=== PATIENT | male | born 1965 | race Caucasian/White ===

== ENCOUNTER 2017-03-18 18:09 | Emergency (ER) | payer BC ==
--- NOTE | 2017-03-18 18:48 | UC ---
Bite Injury/Animal HPI - HPI Summary HPI Summary: 51 YEAR OLD MALE PRESENTS WITH LEFT CALF INSECT BITE. - History of Current Complaint Stated Complaint: SPIDER BITE Time Seen by Provider: 03/18/17 18:47 Hx Obtained From: Patient Severity Currently: Moderate Severity Initially: Moderate Pain Scale Used: 0-10 Numeric - 5 Onset/Duration: Sudden Onset - Allergies/Home Medications Allergies/Adverse Reactions: Allergies Allergy/AdvReac Type Severity Reaction Status Date / Time hayfever Allergy Eyes Uncoded 03/18/17 18:53 Itchy/Swollen/Red/Watery Home Medications: Home Medications Atorvastatin* [Lipitor 10 MG*] 10 mg PO QPM 03/18/17 [History Confirmed 03/18/17 ] Ibuprofen TAB* [Advil TAB*] 400 mg PO Q6H PRN 03/18/17 [History Confirmed ] PMH/Surg Hx/FS Hx/Imm Hx Previously Healthy: Yes - Surgical History Surgical History: Yes Surgery Procedure, Year, and Place: Age 21 yrs oral surgery - Family History Known Family History: Positive: Cardiac Disease - Social History Alcohol Use: Occasionally Substance Use Type: None, Marijuana Substance Use Comment - Amount & Last Used: occasional Smoking Status (MU): Current Some Day Smoker Type: Pipe Review of Systems Constitutional: Negative Skin: Other - LEFT CALF INSECT BITE Eyes: Negative ENT: Negative Respiratory: Negative Cardiovascular: Negative Gastrointestinal: Negative Genitourinary: Negative Motor: Negative Neurovascular: Negative Musculoskeletal: Negative Neurological: Negative Psychological: Negative All Other Systems Reviewed And Are Negative: Yes Physical Exam Triage Information Reviewed: Yes Vital Signs Reviewed: Yes Eye Exam: Normal ENT Exam: Normal Dental Exam: Normal Neck exam: Normal Neck: Positive: 1 Respiratory Exam: Normal Cardiovascular Exam: Normal Abdominal Exam: Normal Musculoskeletal Exam: Normal Neurological Exam: Normal Psychological Exam: Normal Skin: Positive: Other - LEFT CALF INSECT BITE Bite Injury Course/Dx - Differential Dx/Diagnosis Provider Diagnoses: LEFT CALF INSECT BITE Discharge - Discharge Plan Condition: Stable Disposition: HOME Prescriptions: DOXYcycline CAP(*) [DOXYcycline 100MG CAP(*)] 100 mg PO BID #14 cap Patient Education Materials: Lyme Disease (ED), Insect Bite or Sting (ED), Tick Bite (ED) Referrals: Leeanna Hamilton NP [Primary Care Provider] -
[2017-03-18 18:53] VITALS: BP 139/61
== END 2017-03-18 19:13 | disposition home or self-care (01) ==
LOC: UCCORT 18:09
DX: S80.862A Insect bite (nonvenomous), left lower leg, initial encounter (principal); J30.1 Allergic rhinitis due to pollen; W57.XXXA Bitten or stung by nonvenomous insect and other nonvenomous arthropods, initial encounter
CPT/HCPCS: 86618; 99212; G0463

== ENCOUNTER 2017-09-21 19:06 | Emergency (ER) | payer BC ==
[2017-09-21 19:21] VITALS: BP 137/85
[2017-09-21] MEDS ORDERED: Cephalexin CAP* 500 MG PO ONE ×2 (19:31)
[2017-09-21] MEDS ORDERED: Tetan/Diph/Pertus SYR(Tdap)* 0.5 ML SYR(BOOSTRIX) use SYR IM ONE (19:31)
--- NOTE | 2017-09-21 19:41 | UC ---
Hand/Wrist HPI - HPI Summary HPI Summary: 52 MALE SUSTAINED A PW AT WORK ON 09/18 HE STATES THAT THE PAIN WAS MINIMAL AND HE HAS BEEN ASYMPTOMATIC UNTIL TODAY TODAY HIS THUMB BECAME RED AND SWOLLEN PAIN 4/10 DECREASED ROM TODAY UNSURE OF LAST Td - History Of Current Complaint Chief Complaint: UCSkin Stated Complaint: L THUMB INJ Time Seen by Provider: 09/21/17 19:25 Hx Obtained From: Patient Onset/Duration: Sudden Onset, Lasting Days Severity Initially: Mild Severity Currently: Mild Pain Intensity: 4 Pain Scale Used: 0-10 Numeric Character Of Pain: Dull, Aching Aggravating Factor(s): Movement Associated Signs And Symptoms: Positive: Swelling - TODAY, Redness - TODAY Related History: Occupational Injury, Dominant Hand Right - Allergies/Home Medications Allergies/Adverse Reactions: Allergies Allergy/AdvReac Type Severity Reaction Status Date / Time hayfever Allergy Eyes Uncoded 09/21/17 19:21 Itchy/Swollen/Red/Watery PMH/Surg Hx/FS Hx/Imm Hx Previously Healthy: Yes - Surgical History Surgical History: Yes Surgery Procedure, Year, and Place: Age 21 yrs oral surgery - Family History Known Family History: Positive: Cardiac Disease - Social History Alcohol Use: Occasionally Substance Use Type: None, Marijuana Substance Use Comment - Amount & Last Used: occasional Smoking Status (MU): Former Smoker Type: Pipe When Did the Patient Quit Smoking/Using Tobacco: 2006 Review of Systems Constitutional: Negative Skin: Negative Eyes: Negative ENT: Negative Respiratory: Negative Cardiovascular: Negative Gastrointestinal: Negative Genitourinary: Negative Motor: Decreased ROM Neurovascular: Negative Musculoskeletal: Arthralgia Neurological: Negative Psychological: Negative Is Patient Immunocompromised?: No All Other Systems Reviewed And Are Negative: Yes Physical Exam Triage Information Reviewed: Yes Appearance: Well-Appearing, No Pain Distress, Well-Nourished Vital Signs: Initial Vital Signs Temp 99.0 F 09/21/17 19:16 Pulse 67 09/21/17 19:16 Resp 16 09/21/17 19:16 BP 137/85 09/21/17 19:16 Pulse Ox 100 09/21/17 19:16 Eyes: Positive: Conjunctiva Clear ENT: Positive: Hearing grossly normal. Negative: Nasal drainage, TMs normal, Trismus, Muffled voice, Hoarse voice Neck: Positive: Supple, Nontender Respiratory: Positive: Lungs clear, Normal breath sounds, No respiratory distress, No accessory muscle use Cardiovascular: Positive: RRR Musculoskeletal: Positive: ROM Intact, No Edema Neurological: Positive: Alert Psychological Exam: Normal Skin Exam: Normal Hand/Wrist Course/Dx - Differential Dx/Diagnosis Provider Diagnoses: LEFT THUMB CELLULITIS Discharge - Sign-Out/Discharge Documenting (check all that apply): Discharge - Discharge Plan Condition: Stable Disposition: HOME Prescriptions: Cephalexin CAP* [Keflex CAP*] 500 mg PO QID #28 cap Patient Education Materials: Cellulitis (ED) Referrals: Leeanna Hamilton NP [Primary Care Provider] - 2 Days (IF NOT BETTER) Additional Instructions: WARM SOAPY SOAKS 4X DAY UNTIL IMPROVED ELEVATE BECAUSE OF THE PROXIMITY TO YOUR THUMB JOINT YOU NEED TO GO TO THE ER IF SYMPTOMS WORSEN - Billing Disposition and Condition Condition: STABLE Disposition: HOME Images Hands: 1 - RED/SWELLING, NOT FLUTUANT
== END 2017-09-21 19:49 | disposition home or self-care (01) ==
LOC: UCCORT 19:06
DX: L03.012 Cellulitis of left finger (principal); W26.9XXA Contact with unspecified sharp object(s), initial encounter; Y93.9 Activity, unspecified; Y92.9 Unspecified place or not applicable; Y99.0 Civilian activity done for income or pay; Z87.891 Personal history of nicotine dependence
CPT/HCPCS: 90471; 90715; 99212; A9270-GY; G0463